=== PATIENT | female | born 1955 | race Two or more races ===

== ENCOUNTER 2025-07-28 10:32 | Inpatient (IN) | payer OTHER ==
[~2025-07-28] VITALS: Ht 160 cm; Wt 82.6 kg
[2025-07-28] MEDS ORDERED: COZAAR50 MG PO (10:44)
[2025-07-28] MEDS ORDERED: METFORMIN HCL500 M3 PO (10:44)
[2025-07-28 10:45] VITALS: BP 121/87
[2025-07-30] MEDS ORDERED: METRONIDAZOLE/SODIUM CHLORIDE 500 MG/100 ML PIGGYBACK IV ONE (08:19)
[2025-07-30] MEDS ORDERED: CEFTRIAXONE SODIUM 2,000 MG VIAL ONE (08:19)
[2025-07-30] MEDS ORDERED: HEMOSTATIC MATRIX 1 KIT KIT TOP ONE (09:11)
[2025-07-30] MEDS ORDERED: DIBUCAINE 30 GM TUBE ONE (09:11)
[2025-07-30] MEDS ORDERED: LIDOCAINE HCL 1%/EPINEPHRINE 20ML VIAL IJ ONE (09:12)
[2025-07-30] MEDS ORDERED: BUPIVACAINE HCL/Mpf 0.5% 10ML VIAL ONE (09:12)
[2025-07-30] MEDS ORDERED: POVIDONE-IODINE 118 ML BOTT TOP ONE (09:12)
[2025-07-30] MEDS ORDERED: DEXTROSE 50 % IN WATER 0.5 G/ML DISP.SYRIN IV PRN ×2 (11:00→16:15)
[2025-07-30] MEDS ORDERED: ONDANSETRON HCL 2 MG/ML VIAL IV PRN (11:00)
[2025-07-30] MEDS ORDERED: MORPHINE SULFATE 4 MG/ML CARTRIDGE IV PRN (11:00)
[2025-07-30] MEDS ORDERED: RINGERS SOLUTION,LACTATED 1,000 ML IV SCH (11:00)
[2025-07-30] MEDS ORDERED: GABAPENTIN 300 MG CAPSULE PO PRN (11:00)
[2025-07-30] MEDS ORDERED: OxyCODONE HCL 5 MG TABLET (ROXICODONE) PO PRN (11:00)
[2025-07-30] MEDS ORDERED: HYOSCYAMINE SULFATE 0.125 MG TAB.SUBL SL SCH (13:00)
[2025-07-30] MEDS ORDERED: SIMETHICONE 125 MG CAPSULE PO SCH (13:00)
[2025-07-30] MEDS ORDERED: ACETAMINOPHEN 500 MG GEL..CAP PO SCH (14:00)
[2025-07-30] MEDS ORDERED: INSULIN LISPRO 1,000 UNIT/10 ML UNITS SUBCUTANEO PRN (16:15)
[2025-07-30] MEDS ORDERED: ENALAPRILAT DIHYDRATE 1.25 MG/ML VIAL IV PRN (16:15)
[2025-07-30] MEDS ORDERED: METOCLOPRAMIDE HCL 5 MG/ML VIAL IV SCH (17:00)
[2025-07-30 18:00] VITALS: BP 121/88; O2SAT 97
[2025-07-30 18:11] LABS: BASO % 0.2 % (0.1-1.2); EOS # 0.03 (0.04-0.54); EOS % 0.3 % (0.7-7.0); LYMPH # 1.28 (1.18-3.74); LYMPH % 14.9 % (19.3-53.1); MEAN PLATELET VOLUME 10.00 fl (9.4-12.4); MONO # 0.77 (0.24-0.82); MONO % 9.0 % (4.7-12.5); NEUT # 6.47 (1.56-6.13); NEUT % 75.4 % (34.0-71.1); RED CELL DISTRIBUTION WIDTH 13.4 % (11.6-14.4)
[2025-07-30] MEDS ORDERED: FAMOTIDINE/PF 20 MG/2 ML VIAL IV PUSH SCH (21:00)
[2025-07-30] MEDS ORDERED: CELECOXIB 200 MG CAPSULE PO SCH (21:00)
[2025-07-31 00:43] VITALS: BP 110/73; O2SAT 98
[2025-07-31] MEDS ORDERED: INTESTINEX680 M1 PO (07:34)
[2025-07-31] MEDS ORDERED: NEURONTIN300 MG PO (07:34)
[2025-07-31] MEDS ORDERED: CELECOXIB200 MG PO (07:34)
[2025-07-31] MEDS ORDERED: TRAM1TAB98 PO (07:35)
[2025-07-31 07:40] LABS: BASO % 0.3 % (0.1-1.2); EOS # 0.06 (0.04-0.54); EOS % 0.6 % (0.7-7.0); LYMPH # 1.63 (1.18-3.74); LYMPH % 17.0 % (19.3-53.1); MEAN PLATELET VOLUME 10.20 fl (9.4-12.4); MONO # 0.94 (0.24-0.82); MONO % 9.8 % (4.7-12.5); NEUT # 6.92 (1.56-6.13); NEUT % 72.0 % (34.0-71.1); RED CELL DISTRIBUTION WIDTH 13.1 % (11.6-14.4)
[2025-07-31 07:45] LABS: BUN CREA RATIO 16.0 (7.0-25.0); CREATININE SERUM 0.62 mg/dL (0.55-1.02); GFR 95.72; GLUCOSE FASTING 88.0 mg/dL (65-100); OSMOLALITY SERUM 282.0 MOSM/KG (275-295)
[2025-07-31 08:00] VITALS: BP 110/73; O2SAT 96
[2025-07-31] MEDS ORDERED: LACTOBACILLUS ACIDOPHILUS 1 CAP CAP PO SCH (09:00)
[2025-07-31] MEDS ORDERED: LOSARTAN POTASSIUM 50 MG TABLET PO SCH (09:00)
[2025-07-31] MEDS ORDERED: ENOXAPARIN SODIUM 40 MG/0.4 ML SYRINGE SUBCUTANEO SCH (17:00)
[2025-08-01] MEDS ORDERED: ENOXAPARIN SODIUM 40 MG/0.4 ML SYRINGE SUBCUTANEO SCH (09:00)
== END 2025-07-31 11:57 | disposition home or self-care (01) | DRG 748 ==
LOC: O/R 07-30 08:00 → SURH 07-30 11:15
PROVIDERS: ADMIT Surgery; ATTEND Surgery
PROC: 3E0T3BZ Introduction of Anesthetic Agent into Peripheral Nerves and Plexi, Percutaneous Approach (ICD-10-PCS; 2025-07-30)
PROC: 0JQC0ZZ Repair Pelvic Region Subcutaneous Tissue and Fascia, Open Approach (ICD-10-PCS; principal; 2025-07-30 11:45)
DX: N81.6 Rectocele (principal); K59.02 Outlet dysfunction constipation